=== PATIENT | female | born 1955 | race African-American/Black ===

== ENCOUNTER 2017-09-02 08:02 | Day surgery (SDC) | payer OTHER ==
[~2017-09-02] VITALS: Ht 167.6 cm; Wt 88.9 kg
[~2017-09-02 08:02] MED LIST: ALPR0.254 PO; ASPI-378 PO; ATOR20TA50 PO; HAL1T PO; HCTZ25T PO; MULT-654 OR; QUET100T46 PO; VITA400T4 PO; [UNRECOGNIZED DRUG - CODE] PO
[2017-09-02] MEDS ORDERED: IOHEXOL 350 MG/ML 100ML IJ ONE (09:50)
[2017-09-02] MEDS ORDERED: LIDOCAINE 2%HCL (LOCAL ANESTH.) INJ 20ML MDV ONE (09:50)
[2017-09-02] MEDS ORDERED: VERAPAMIL 2.5MG/ML INJ 2ML VIAL IV ONE (09:57)
[2017-09-02] MEDS ORDERED: fentaNYL CITRATE 100 MCG/2 ML VL ONE (09:57)
[2017-09-02] MEDS ORDERED: MIDAZOLAM HCL 1MG/1ML-2 ML VIAL ONE (09:57)
[2017-09-02] MEDS ORDERED: SODIUM CHL 0.9% 0 ML ONE (09:57)
[2017-09-02] MEDS ORDERED: HEPARIN SODIUM (PORCINE) 5000 UNITS/ML 1ML VIAL ONE (10:03)
== END 2017-09-02 12:30 | disposition home or self-care (01) ==
LOC: CATH 08:02
PROVIDERS: ATTEND Internal Medicine Cardiovascular Disease
DX: I50.30 Unspecified diastolic (congestive) heart failure (principal); E78.5 Hyperlipidemia, unspecified; I10 Essential (primary) hypertension; Z87.891 Personal history of nicotine dependence
CPT/HCPCS: 93005; C1769; C1887; C1894; J1644; J2250; J3010; J7030; Q9967; 93458; 99152

== ENCOUNTER 2022-06-28 08:58 | Inpatient (IN) | payer MEDICARE, OTHER ==
[2022-06-28] VITALS (9 sets, daily range): BP systolic 94–142; BP diastolic 55–82
[~2022-06-28] VITALS: Ht 170.2 cm; Wt 131.8 kg
[~2022-06-28 08:58] MED LIST changes: -ALPR0.254 PO; +ATOR20TA PO; -ATOR20TA50 PO; -HAL1T PO; -HCTZ25T PO; +HYDR25TA5 PO; +METO25TA36 PO; +PANT40TA2 PO; -QUET100T46 PO; +TRAZ50TA2 PO; -VITA400T4 PO; -[UNRECOGNIZED DRUG - CODE] PO
[2022-06-28] MEDS ORDERED: BUPIVACAINE 0.25% INJ 50ML VIAL ONE (09:07)
[2022-06-28] MEDS ORDERED: TRANEXAMIC ACID 20 ML ONE (09:07)
[2022-06-28] MEDS ORDERED: PREGABALIN CAPSULE 75 MG CAP ONE (09:08)
[2022-06-28] MEDS ORDERED: VANCOMYCIN HCL 1000 MG VL ONE (09:09)
[2022-06-28] MEDS ORDERED: ceFAZolin 1GM/50ML 100 ML IV ONE (09:09)
[2022-06-28] MEDS ORDERED: ACETAMINOPHEN IV 100 ML IV ONE (09:09)
[2022-06-28] MEDS ORDERED: ACETAMINOPHEN IV 1000 MG/100ML (10MG/ML) IV ONE (09:15)
[2022-06-28] MEDS ORDERED: PREGABALIN CAPSULE 75 MG CAP PO ONE (09:15)
[2022-06-28] MEDS ORDERED: MORPHINE SULF PF 5 MG/10 ML VIAL ONE ×2 (09:26→10:17)
[2022-06-28] MEDS ORDERED: KETOROLAC TROMETH 30 MG/ML 1ML VIAL ONE (09:26)
[2022-06-28] MEDS ORDERED: TETRACAINE 1% INJ 2 ML VIAL IJ ONE (09:44)
[2022-06-28] MEDS ORDERED: DexAMETHasone SOD PHOS 4 MG/1ML SDV INJ ONE (10:14)
[2022-06-28] MEDS ORDERED: fentaNYL CITRATE 100 MCG/2 ML VL ONE (10:17)
[2022-06-28] MEDS ORDERED: SODIUM CHLORIDE LOCK 10 ML ONE (10:17)
[2022-06-28] MEDS ORDERED: PROPOFOL 10 MG/ML 20 ML IV ONE ×2 (10:17→10:45)
[2022-06-28] MEDS ORDERED: DexAMETHasone SOD PHOS 10MG/1ML VIAL INJ ONE (10:17)
[2022-06-28] MEDS ORDERED: MIDAZOLAM HCL 2MG/2ML 2ml VIAL (1mg/ml) ONE (10:17)
[2022-06-28] MEDS ORDERED: ONDANSETRON HCL 4 MG/2 ML VIAL ONE (10:17)
[2022-06-28] MEDS ORDERED: ONDANSETRON HCL 4 MG/2 ML VIAL IV PRN (12:30)
[2022-06-28] MEDS ORDERED: HYDROcodone-ACET 5/325MG TAB PO PRN (12:30)
[2022-06-28] MEDS ORDERED: NITROGLYCERIN 0.4 MG SL TAB SL PRN (12:30)
[2022-06-28] MEDS ORDERED: HYDROmorphone HCL 2 MG/ML VL/or syr IV PRN ×3 (12:30)
[2022-06-28] MEDS ORDERED: diphenhdrAMINE HCL 50 MG/1 ML VL IV PRN (12:30)
[2022-06-28] MEDS ORDERED: ACETAMINOPHEN 325 MG TAB PO PRN (12:30)
[2022-06-28] MEDS ORDERED: MORPHINE SULFATE INJ 2 MG/ml SYRG IV PRN ×2 (12:30)
[2022-06-28] MEDS: LACTATED RINGER'S 1,000 ML IV SCH ×2 (12:30→17:30)
[2022-06-28] MEDS ORDERED: NALOXONE HCL 0.4 MG/ML VIAL IV PRN (12:30)
[2022-06-28] MEDS ORDERED: METOCLOPRAMIDE HCL 5MG/ml INJ 2ml VIAL IV PRN (12:30)
[2022-06-28] MEDS: ceFAZolin 1GM/50ML 50 ML IV SCH ×2 (12:30→18:30)
[2022-06-28] MEDS ORDERED: METOCLOPRAMIDE HCL 5MG/ml INJ 2ml VIAL IV ONE (13:52)
[2022-06-28] MEDS: SODIUM CHLOR 0.9% PF (SALINE LOCK) 10ML VIAL/SYR IV SCH ×2 (14:00→21:30)
[2022-06-28] MEDS ORDERED: PROMETHAZINE HCL 25 MG/ML 1ML IV ONE (17:45)
[2022-06-28] MEDS ORDERED: CHOL20007 OR (19:32)
[2022-06-28] MEDS ORDERED: ATROPINE SULF 1 MG/10ml SYR IV PRN (21:15)
[2022-06-28] MEDS: DOCUSATE SOD 100 MG CAP PO SCH (21:30)
[2022-06-28] MEDS: traZODone HCL 50 MG TAB PO SCH (22:00)
[2022-06-29] VITALS (19 sets, daily range): BP systolic 104–155; BP diastolic 58–92
[2022-06-29] MEDS: ceFAZolin 1GM/50ML 50 ML IV SCH (00:21)
[2022-06-29] MEDS: SODIUM CHLOR 0.9% PF (SALINE LOCK) 10ML VIAL/SYR IV SCH ×3 (05:42→22:00)
[2022-06-29 06:52] LABS: Hematocrit 34.3 % (36.0-46.0); Hemoglobin 11.5 g/dL (12.2-16.2)
[2022-06-29 07:10] LABS: Albumin 3.6 g/dL (3.4-5.0); Calcium 8.9 mg/dL (8.5-10.1); Potassium 4.4 mmol/L (3.5-5.1)
[2022-06-29 07:15] LABS: BUN/Creatinine Ratio 15.2; Bilirubin, Total 0.4 mg/dL (0.2-1.0); Total Protein 6.6 g/dL (6.4-8.2)
[2022-06-29] MEDS: DOCUSATE SOD 100 MG CAP PO SCH ×2 (09:44→22:55)
[2022-06-29] MEDS: PANTOPRAZOLE 40 MG TAB PO SCH (09:45)
[2022-06-29] MEDS: ATORVASTATIN 20 MG TAB PO SCH (09:45)
[2022-06-29] MEDS: METOPROLOL SUCCINATE XL 50 MG TAB PO SCH (09:46)
[2022-06-29] MEDS ORDERED: traZODone HCL 50 MG TAB PO SCH (10:00)
[2022-06-29] MEDS ORDERED: HCTZ 25 MG TAB PO SCH (10:00)
[2022-06-29] MEDS: LACTATED RINGER'S 1,000 ML IV SCH (12:00)
[2022-06-29 13:01] LABS: Urine Bacteria NONE SEEN /hpf (None Seen); Urine Blood Negative /uL (Negative); Urine WBC 1 /hpf (0 - 5)
[2022-06-29 13:28] LABS: Basophils # (auto) 0 10 ^3/uL (0-0.2); Basophils % (auto) 0.1 % (0.0-2.0); Eosinophils # (auto) 0 10 ^3/uL (0-0.8); Hematocrit 30.2 % (36.0-46.0); Hemoglobin 10.1 g/dL (12.2-16.2); Lymphocytes # (auto) 0.8 10 ^3/uL (0.4-5.4); Lymphocytes % (auto) 6.7 % (10.0-50.0); Mean Corpuscular Hemoglobin 29.9 pg (28.0-32.0); Mean Corpuscular Hgb Conc. 33.6 g/dL (32.0-36.0); Mean Corpuscular Volume 89.1 fL (80.0-100.0); Monocytes # (auto) 0.9 10 ^3/uL (0-1.3); Neutrophils # (auto) 10.6 10 ^3/uL (1.6-8.6); Neutrophils % (auto) 86.2 % (37.0-80.0); Red Blood Cells 3.38 10^6/uL (4.0-5.20); Red Cell Distribution Width 14.5 % (11.8-14.3); White Blood Cell 12.3 10^3/uL (4.4-10.8)
[2022-06-29] MEDS: ENOXAPARIN SOD 40 MG/0.4 ML SYRINGE SC SCH (14:18)
[2022-06-29] MEDS: HYDROmorphone HCL 2 MG/ML VL/or syr IV PRN ×2 (17:09→22:56)
[2022-06-29] MEDS: traZODone HCL 50 MG TAB PO SCH (22:56)
[2022-06-30] MEDS: LACTATED RINGER'S 1,000 ML IV SCH (01:20)
[2022-06-30 05:00] VITALS: BP 129/85
[2022-06-30] MEDS: HYDROmorphone HCL 2 MG/ML VL/or syr IV PRN ×2 (05:36→10:18)
[2022-06-30] MEDS: SODIUM CHLOR 0.9% PF (SALINE LOCK) 10ML VIAL/SYR IV SCH ×2 (05:37→12:41)
[2022-06-30 06:40] LABS: Basophils # (auto) 0 10 ^3/uL (0-0.2); Basophils % (auto) 0.3 % (0.0-2.0); Eosinophils # (auto) 0 10 ^3/uL (0-0.8); Eosinophils % (auto) 0.4 % (0.0-7.0); Hematocrit 28.8 % (36.0-46.0); Hemoglobin 10.1 g/dL (12.2-16.2); Lymphocytes # (auto) 1.9 10 ^3/uL (0.4-5.4); Lymphocytes % (auto) 20.5 % (10.0-50.0); Mean Corpuscular Hemoglobin 30.8 pg (28.0-32.0); Mean Corpuscular Hgb Conc. 34.9 g/dL (32.0-36.0); Mean Corpuscular Volume 88.4 fL (80.0-100.0); Monocytes # (auto) 0.9 10 ^3/uL (0-1.3); Monocytes % (auto) 9.6 % (0.0-12.0); Neutrophils # (auto) 6.4 10 ^3/uL (1.6-8.6); Neutrophils % (auto) 69.2 % (37.0-80.0); Nucleated Red Blood Cells % 0.1 %; Red Blood Cells 3.26 10^6/uL (4.0-5.20); Red Cell Distribution Width 14.8 % (11.8-14.3); White Blood Cell 9.2 10^3/uL (4.4-10.8)
[2022-06-30 06:47] LABS: Calcium 8.8 mg/dL (8.5-10.1); Potassium 3.5 mmol/L (3.5-5.1)
[2022-06-30 06:49] LABS: BUN/Creatinine Ratio 17.6
[2022-06-30 09:00] VITALS: BP 154/66
[2022-06-30] MEDS: PANTOPRAZOLE 40 MG TAB PO SCH (09:36)
[2022-06-30] MEDS: METOPROLOL SUCCINATE XL 50 MG TAB PO SCH (09:36)
[2022-06-30] MEDS: ATORVASTATIN 20 MG TAB PO SCH (09:36)
[2022-06-30] MEDS: DOCUSATE SOD 100 MG CAP PO SCH (09:36)
[2022-06-30] MEDS: ENOXAPARIN SOD 40 MG/0.4 ML SYRINGE SC SCH (09:37)
[2022-06-30 12:42] VITALS: BP 138/66
[2022-06-30 13:00] VITALS: BP 150/82
== END 2022-06-30 17:25 | disposition home health service (06) | DRG 470 ==
LOC: SUR 08:58 → OVERFLOW 12:32 → WEST WING 17:22 → TELE-WESTW 23:51
PROVIDERS: ADMIT Orthopaedic Surgery Adult Reconstructive Orthopaedic Surgery; ATTEND Internal Medicine
PROC: 0SRC0J9 Replacement of Right Knee Joint with Synthetic Substitute, Cemented, Open Approach (ICD-10-PCS; principal; 2022-06-28 09:58)
DX: M17.11 Unilateral primary osteoarthritis, right knee (principal); Z68.42 Body mass index [BMI] 45.0-49.9, adult; I12.9 Hypertensive chronic kidney disease with stage 1 through stage 4 chronic kidney disease, or unspecified chronic kidney disease; E66.01 Morbid (severe) obesity due to excess calories; E78.5 Hyperlipidemia, unspecified; K21.9 Gastro-esophageal reflux disease without esophagitis; N18.31 Chronic kidney disease, stage 3a; Z20.822 Contact with and (suspected) exposure to COVID-19; Z88.8 Allergy status to other drugs, medicaments and biological substances
CPT/HCPCS: 36415; 73562; 80048; 80053; 81001; 85014; 85018; 85025; 86850; 86900; 86901; 97110; 97116; 97163; 97530; C1713; G0378; J0131; J0690; J1100; J1885; J2250; J2405; J2704; J3490